=== PATIENT | male | born 1990 ===

== ENCOUNTER 2016-10-13 13:08 | Emergency (ER) | payer OTHER ==
[2016-10-13 13:25] VITALS: BP 124/76; PULSE 75; RESP 16; TEMP 97; O2SAT 98
[2016-10-13 13:26] VITALS: BMI 29.0
[2016-10-13] MEDS ORDERED: Bacitracin OINT 15GM TOP STA (13:37)
--- NOTE | 2016-10-13 15:13 | ED PDOC ---
HPI: Skin/Bite Injury Time Seen by Provider: 10/13/16 13:27 Chief Complaint (Nursing): Abnormal Skin Integrity Chief Complaint (Provider): Finger Laceration History Per: Patient History/Exam Limitations: no limitations Onset/Duration Of Symptoms: Hrs (just prior to arrival) Current Symptoms Are (Timing): Still Present Location Of Injury: Left: Hand (third finger) Additional Complaint(s): Shanti Reina a 26 year old male patient presents to the ED with a laceration to his left third finger. Patient states that he got the laceration while at work. The patients tetanus is up to date. Past Medical History Reviewed: Historical Data, Nursing Documentation, Vital Signs Vital Signs: Last Vital Signs Temp 97 F L 10/13/16 13:20 Pulse 75 10/13/16 13:20 Resp 16 10/13/16 13:20 BP 124/76 10/13/16 13:20 Pulse Ox 98 10/13/16 15:40 - Medical History PMH: No Chronic Diseases - Family History Family History: States: Unknown Family Hx - Social History Current smoker - smoking cessation education provided: No Alcohol: None - Immunization History Hx Tetanus Toxoid Vaccination: Yes - Allergies Allergies/Adverse Reactions: Allergies Allergy/AdvReac Type Severity Reaction Status Date / Time No Known Allergies Allergy Verified 10/13/16 13:25 Review of Systems Musculoskeletal: Positive for: Hand Pain (laceration to left third finger) Physical Exam - Reviewed Vital Signs Reviewed: Yes - Physical Exam Appears: Positive for: Non-toxic, No Acute Distress Skin: Positive for: Normal Color, Warm, Dry Extremity: Positive for: Normal ROM (Full range of motion actively of left third finger), Other (1cm very superficial linear laceration on the dorsal surface of the left third digit on the middle phalynx no active bleeding.) Neurologic/Psych: Positive for: Alert, Oriented. Negative for: Motor/Sensory Deficits - ECG O2 Sat by Pulse Oximetry: 98 (RA) Pulse Ox Interpretation: Normal Medical Decision Making Medical Decision Makin:27 Initial Impression: Finger Laceration Initial Plan: * Bacitracin 1 applic TOP Laceration is not severe enough to necessitate repair. 14:06 Upon provider reevaluation patient is feeling better, is medically stable , and requires no further treatment in the ED at this time. Patient will be discharged home. Counseling was provided and all questions were answered regarding diagnosis and need for follow up with PMD. There is agreement to discharge plan. Return if symptoms persist or worsen. Scribe Attestation: Documented by Cindi Johnson training under Charmaine Gilliam, acting as a scribe for Adin Banda PA-C. Provider Scribe Attestation: All medical record entries made by the Scribe were at my direction and personally dictated by me. I have reviewed the chart and agree that the record accurately reflects my personal performance of the history, physical exam, medical decision making, and the department course for this patient. I have also personally directed, reviewed, and agree with the discharge instructions and disposition. Disposition - Clinical Impression Clinical Impression: Finger laceration - Patient ED Disposition Is Patient to be Admitted: No Doctor Will See Patient In The: ED Counseled Patient/Family Regarding: Diagnosis - Disposition Disposition: Routine/Home Disposition Time: 14:06 Condition: STABLE Additional Instructions: Patient may return to work today but must keep wound covered and clean. Instructions: Laceration (ED) Print Language: [id number] Procedures - Time-Out PA/Tech: Adin Banda PA-C
== END 2016-10-13 14:06 | disposition home or self-care (01) ==
LOC: H.ER 13:08
DX: S61.203A Unspecified open wound of left middle finger without damage to nail, initial encounter (principal); W26.0XXA Contact with knife, initial encounter; Y99.0 Civilian activity done for income or pay